=== PATIENT | female | born 1990 | race Caucasian/White ===

== ENCOUNTER 2019-12-01 14:18 | Outpatient (CLI) | payer OTHER, SELFPAY ==
--- NOTE | 2019-12-01 14:26 | DI.US.S_ITS ---
PROCEDURE: US OB TRANSVAGINAL INDICATIONS: CERVICAL LENGTH FOR CONTRACTIONS OUTSIDE/PRIOR DATING DATA: Estimated date of delivery (ORALIA) from an outside prior scan: 01/29/20. TECHNIQUE: Real-time scanning was performed of the fetus, with image documentation. Endovaginal scanning: Was performed for better visualization COMPARISON: None. FINDINGS: A single living intrauterine gestation is present. Presentation: Cephalic. Placenta: No placenta previa is seen. Amniotic fluid index: Not measured heart rate: Not measured Maternal cervical canal: 4.4 cm long. No funneling of the internal cervical os can be seen. IMPRESSION: The cervical length is 4.4 cm. No funneling of the internal cervical os can be seen. Cephalic presentation, without placenta previa. Dictated by: Clinton Song M.D. on 12/01/2019 at 14:14 Approved by: Clinton Song M.D. on 12/01/2019 at 14:16
[2019-12-01 14:31] LABS: Bacteria Urine None Seen; RBC Urine None Seen (0-5/HPF); WBC Urine None Seen (0-5/HPF)
[2019-12-01 14:32] LABS: Appearance Urine UA CLEAR; Bilirubin Urine UA NEGATIVE (NEGATIVE); Color Urine UA YELLOW; Glucose Urine UA NEGATIVE (Negative); Ketones Urine UA NEGATIVE (NEGATIVE); Leukocyte Esterase Urine UA NEGATIVE (NEGATIVE); Nitrite Urine UA NEGATIVE (Negative); Occult Blood Urine UA NEGATIVE (Negative); Protein Urine UA NEGATIVE (Negative); Urobilinogen Urine UA 0.2 E.U./dL (0.2)
[2019-12-01 14:37] LABS: Culture Indicated Urine Cult Not Indicated; Urine Comments Microscopic Normal
--- NOTE | 2019-12-01 15:01 | PM.OBTRLD ---
Visit Information Visit Information Date of evaluation: 12/01/19 Primary OB Provider: Christine Rick On-call OB Provider: Alisia Spicer Reason for Evaluation: Yes pre-term labor Comments/Additional reasons for admission: 29YO @ [id number] here for evaluation of contractions. [place] uncomfortable constant uterine tightening all night that increased to time-able contractions this afternoon. No VB or LOF. 30wk [place] from [facility] to CNM. Vital Signs Vital Signs: BP 120/65, T97.5F Temporal, RR16 PFSH Social History (Updated 12/01/19 @ 15:07 by Christine Rick CNM) marital status: household members: spouse lives independently: Yes caregiver/support person: No occupational status: employed current occupational exposures/hazards: No Previous occupational history: AD Review of Systems Review of Systems ROS: Yes All systems reviewed with the patient and are negative except as otherwise documented Exam Presentation: vertex Objective Imaging US OB transvaginal Cervical Length: My impression: Stable CL- 4.4cm (was 4.5cm @ 22wk anatomy scan US) Radiologist's impression: PROCEDURE: US OB TRANSVAGINAL INDICATIONS: CERVICAL LENGTH FOR CONTRACTIONS OUTSIDE/PRIOR DATING DATA: Estimated date of delivery (ORALIA) from an outside prior scan: 01/29/20. TECHNIQUE: Real-time scanning was performed of the fetus, with image documentation. Endovaginal scanning: Was performed for better visualization COMPARISON: None. FINDINGS: A single living intrauterine gestation is present. Presentation: Cephalic. Placenta: No placenta previa is seen. Amniotic fluid index: Not measured heart rate: Not measured Maternal cervical canal: 4.4 cm long. No funneling of the internal cervical os can be seen. IMPRESSION: The cervical length is 4.4 cm. No funneling of the internal cervical os can be seen. Cephalic presentation, without placenta previa. Dictated by: Clinton Song M.D. on 12/01/2019 at 14:14 Approved by: Clinton Song M.D. on 12/01/2019 at 14:16 Labs Labs: Laboratory Results - last 24 hr 12/01/19 14:20 Urine Color Yellow Urine Appearance Clear Urine pH 7.0 Ur Specific [place] 1.010 Urine Protein Negative Urine Glucose (UA) Negative Urine Ketones Negative Urine Occult Blood Negative Urine Nitrate Negative Urine Bilirubin Negative Urine Urobilinogen 0.2 Ur Leukocyte Esterase Negative Urine RBC None seen Urine WBC None seen Urine Bacteria None seen Ur Culture Indicated? Cult not indicated Micro UA Comment Microscopic normal LOIS/Wet prep-negative for clue cells, yeast buds and trich Evaluation Evaluation Baseline heart rate: 145 Variability: Moderate (11-25) monitor accelerations: Present monitor decelerations: Absent Contraction Frequency (minutes): 5 Uterine Contraction Intensity: Mild Category of Tracing: I Laboratory results: Laboratory Tests 12/01/19 14:20 Urine Color Yellow Urine Appearance Clear Urine pH 7.0 Ur Specific [place] 1.010 Urine Protein Negative Urine Glucose (UA) Negative Urine Ketones Negative Urine Occult Blood Negative Urine Nitrate Negative Urine Bilirubin Negative Urine Urobilinogen 0.2 Ur Leukocyte Esterase Negative Urine RBC None seen Urine WBC None seen Urine Bacteria None seen Ur Culture Indicated? Cult not indicated Micro UA Comment Microscopic normal Comments: fFN collected, but not sent after 4.4cm CL resulted Diagnosis, Plan/Disposition Plan/Disposition Plan: A: contractions with NO concern for labor @ 31wks EGA P: Discharge to home w/ routien precautions. Counseled her that this is her new baseline of discomfort and encouraged her to call if cramping increases. RTC as previously scheduled. OB Disposition: home
== END 2019-12-01 15:35 | disposition home or self-care (01) ==
LOC: LABOR 15:04 → OB 12-02 13:25
PROVIDERS: PCP Physician Assistant; Referring Provider Nurse Practitioner Obstetrics & Gynecology; Visit Provider Nurse Practitioner Obstetrics & Gynecology
DX: O47.03 False labor before 37 completed weeks of gestation, third trimester (principal); Z3A.31 31 weeks gestation of pregnancy
CPT/HCPCS: 59025; 76817; 81001; 87210; G0378; G0379

== ENCOUNTER → 2020-01-06 13:08 | Outpatient (ROUT) | payer OTHER, SELFPAY | PROVIDERS: PCP Physician Assistant; Visit Provider Nurse Practitioner Obstetrics & Gynecology | DX: Z34.90 Encounter for supervision of normal pregnancy, unspecified, unspecified trimester (principal); Z36.85 Encounter for antenatal screening for Streptococcus B; Z3A.36 36 weeks gestation of pregnancy | CPT/HCPCS: 87070; 87077; 87147; 87205 ==

== ENCOUNTER 2020-01-26 21:35 | Outpatient (CLI) | payer OTHER, SELFPAY ==
--- NOTE | 2020-01-27 05:55 | PM.OBTRLD ---
Visit Information Visit Information Date of evaluation: 01/26/20 Primary OB Provider: Christine Rick On-call OB Provider: Petra Steele Reason for Evaluation: Yes rupture of membranes Comments/Additional reasons for admission: 29YO @ [id number]. Has noticed increasing abdominal pain and wet underwear x 2 days, here for evaluation of PROM. +FM. No VB. Vital Signs Vital Signs: BP 131/72, HR 76bpm, RR 16/min, T 99.1F Temporal PFSH Social History marital status: household members: spouse lives independently: Yes caregiver/support person: No occupational status: employed current occupational exposures/hazards: No Previous occupational history: AD Review of Systems Review of Systems ROS: Yes All systems reviewed with the patient and are negative except as otherwise documented Evaluation Evaluation Baseline heart rate: 115 Variability: Moderate (11-25) monitor accelerations: Present monitor decelerations: Absent Contraction Frequency (minutes): 5 Uterine Contraction Intensity: Mild Category of Tracing: I Non-invasive Membranes Rupture Test: negative Comments: CE deferred Diagnosis, Plan/Disposition Final Diagnosis (1) Amniotic cavity/membrane problem suspected but not found: Status: Acute Plan/Disposition Plan: Discharge to home with routine precautions. Follow-up as previously scheduled. OB Disposition: home
== END 2020-01-26 22:14 | disposition home or self-care (01) ==
LOC: LABOR 21:37 → OB 01-27 11:45
PROVIDERS: PCP Physician Assistant; Referring Provider Nurse Practitioner Obstetrics & Gynecology; Visit Provider Nurse Practitioner Obstetrics & Gynecology
DX: O26.893 Other specified pregnancy related conditions, third trimester (principal); N89.8 Other specified noninflammatory disorders of vagina; Z3A.39 39 weeks gestation of pregnancy
CPT/HCPCS: 59025; 84112; G0378; G0379

== ENCOUNTER 2020-01-27 06:16 | Observation (INO) | payer OTHER, SELFPAY ==
--- NOTE | 2020-01-27 06:34 | PM.OBTRLD ---
Visit Information Visit Information Date of evaluation: 01/27/20 Primary OB Provider: Christine Rick On-call OB Provider: Petra Steele Reason for Evaluation: Yes rule out labor Comments/Additional reasons for admission: 29YO @ [id number] here for evaluation of labor. Has been having regular contractions since 1am, strong since 4am. Breathing through contractions every 3 minutes. +FM. No VB. No further LOF since negative Amnisure last night. Vital Signs Vital Signs: BP 132/74, HR 99bpm, T98.8F temporal PFSH Social History marital status: household members: spouse lives independently: Yes caregiver/support person: No occupational status: employed current occupational exposures/hazards: No Previous occupational history: AD Review of Systems Review of Systems ROS: Yes All systems reviewed with the patient and are negative except as otherwise documented Evaluation Evaluation Baseline heart rate: 120 Variability: Moderate (11-25) monitor accelerations: Present monitor decelerations: Absent Contraction Frequency (minutes): 3 Uterine Contraction Intensity: Moderate Category of Tracing: I Cervical dilation (cm): 2 Cervical effacement (%): 90 station: -2 Diagnosis, Plan/Disposition Plan/Disposition Plan: A: Early Labor, GBS pos P: Recommend 2 hours walk and return, sooner if needed. SARS Cov2- swabs collected and sent on patient and spouse. Encouraged light breakfast and ambulation. Will reassess upon return to the hospital, likely admission at that time. OB Disposition: home
[2020-01-27 08:12] LABS: COVID19 -Nasal RAPID Negative (Negative)
== END 2020-01-27 07:15 | disposition home or self-care (01) ==
PROVIDERS: Admitting Provider Nurse Practitioner Obstetrics & Gynecology; PCP Physician Assistant; Referring Provider Physician Assistant; Visit Provider Nurse Practitioner Obstetrics & Gynecology
DX: Z34.03 Encounter for supervision of normal first pregnancy, third trimester (principal); Z3A.39 39 weeks gestation of pregnancy
CPT/HCPCS: 87635; G0378; G0379

== ENCOUNTER 2020-01-27 10:07 | Inpatient (IN) | payer OTHER, SELFPAY ==
--- NOTE | 2020-01-27 11:12 | PM.OBHP.1 ---
OB HPI Date/Time Date of admission: 01/27/20 Date Patient Seen: 01/27/20 Time Patient Seen: 11:00 History of Present Condition Chief complaint: OBSERVATION OF LABOR : 1 Para: 0 Estimated Date of Delivery: 01/29/20 Estimated Gestational Age (weeks): 39.5 Narrative: Neri Lincoln is a 29 year old nulliparous female @ [id number] by sure LMP and early US who presents for evaluation of labor. Has been miracle regularly since 0100 with steady progression of frequency and intensity of contractions. Now breathing through and moaning with contractions. Lots of FM and bloody show. No LOF. CE at 0630 @ 2/90/-2. Declines CE upon admission. [place]/ transfer to [facility] @ 30 wks. GBS positive. Desires low intervention . present andd supportive. History of Present care: good care Dating criteria: LMP confirmed by 1st trimester US Ultrasounds: normal 1st trimester US and normal mid trimester US Obstetrical complications: none Medical complications: none Preadmission Labs Blood type: O (+) positive -: Antibody screen: negative, GBS status: positive, HBsAG: negative, HIV: negative and RPR/VDLR: negative -: Chlamydia screen: not detected and Gonorrhea screen: not detected -: Rubella: immune and Varicella: immune HCT: 39.1 HCAB: negative PAP: Normal 1 hr GTT: 108 Narrative: 01/27/20: SARS Cov2-negative Evaluation Evaluation Baseline heart rate: 125 Variability: Moderate (11-25) monitor accelerations: Present monitor decelerations: Absent Contraction Frequency (minutes): 2 Uterine Contraction Intensity: Strong/Firm Cervical effacement (%): 90 station: -2 Comments: Patient presumed to be 3-4cm [facility] Social History marital status: household members: spouse lives independently: Yes caregiver/support person: No occupational status: employed current occupational exposures/hazards: No Previous occupational history: AD Meds Home Medications and Allergies Home Medications Medication Instructions Recorded Confirmed Type 01/27/20 History Allergies Allergy/AdvReac Type Severity Reaction Status Date / Time No Known Drug Allergies Allergy Unverified 01/27/20 11:26 Review of Systems Review of Systems ROS: Yes All systems reviewed with the patient and are negative except as otherwise documented Exam Vital Signs (past 8 hours): BP 120/67, HR 1010bpm, T36.2C Temporal OB/External & Speculum: deferred Presentation: vertex Amniotic Fluid: no fluid Assessment and Plan Assessment and Plan Assessment and Plan narrative: Apparently active labor. Admit, routine orders w/ CBC, T&S and PCN ofr GBS porphylaxis. Continuous labor support. Encourage frequent position changes. May swithc to IA, per protocol. OB back-up, , notified of patient admission status and POC. Reasses in 2-4 hours or rl, PRN. Time Spent with Patient Total time spent with greater than 50% in coordination of care (as documented) at patient's floor/unit and/or counseling patient:: 15-24 minutes
[2020-01-27 11:45] LABS: Add Manual Diff / Slide Review NO; Basophils Absolute Auto 100 /uL (0-100); Basophils Percent Auto 0.4 % (0-2); Eosinophils Absolute Auto 0 /uL (0-450); Hematocrit 37.5 % (36-46); Hemoglobin 13.1 g/dL (12.0-16.0); Lymphocytes Absolute Auto 1600 /uL (1100-4500); Lymphocytes Percent Auto 9.5 % (25-40); Mean Corpuscular HGB Conc 34.9 % (30-36); Mean Corpuscular Hemoglobin 29.4 PG (26-34); Mean Corpuscular Volume 84.3 fL (80-100); Monocytes Absolute Auto 900 /uL (0-900); Monocytes Percent Auto 5.7 % (3-14); Neutrophils Absolute Auto 14200 /uL (1500-7000); Neutrophils Percent Auto 84.4 % (50-75); Platelet Count 224 X10^3/uL (150-400); Red Blood Cell Count 4.45 X10^6/uL (4.0-5.2); Red Cell Distribution Width 12.6 % (11.6-14.8); White Blood Cell Count 16.8 X10^3/uL (4.5-11.0)
[2020-01-27] MEDS: PENICILLIN G POTASSIUM 5,000,000 UNIT in DEXTROSE 5% IN WATER 250 ML IV (11:55)
[2020-01-27 12:17] VITALS: BP 120/67
--- NOTE | 2020-01-27 13:29 | PM.OBPNLAB ---
Date/Time Date Patient Seen: 01/27/20 Time Patient Seen: 12:50 Pain Control Pain control: tolerating well Comments: breathing through and moaning with contractions. Has been laboring well in the tub, planning to move to the shower next. No LOF. Pelvic Exam Dilation (cm): 5 Effacement (%): 100 station: -2 Amniotic membrane status: Bulging Contractions Date/Time contractions began: <del>1000</del> Contractions on admission: regular Monitor mode: Palpation Pitocin rate (mU/min): 0 Contraction frequency (min): 2 Contraction duration (min): 1 Contraction pattern: Regular Contraction intensity: Strong/Firm Status status: Category l Heart Rate Baseline: 130 Comments: FHR reassuring by intermittent auscultation, see RN OBIX documentation, no decreases noted. Assessment and Plan Assessment: active labor Plan: continuous present management Comments: Continuous labor support. Reassess in 4 hours or sooner, PRN.
--- NOTE | 2020-01-27 15:03 | PM.OBPNLAB ---
Date/Time Date Patient Seen: 01/27/20 Time Patient Seen: 15:00 Pain Control Pain control: epidural Comments: SROM 1335, clear fluid, contractions intensified. Patient began to spontaneously push at the peak of contractions, was checked and told she is 6cm, requested epidural. Epidural procedure starting now. Pelvic Exam Dilation (cm): 6 Effacement (%): 100 station: -2 Amniotic membrane status: Leaking Contractions Date/Time contractions began: 1000 Contractions on admission: regular Monitor mode: Palpation Pitocin rate (mU/min): 0 Contraction frequency (min): 3 Contraction duration (min): 1 Contraction pattern: Regular Contraction intensity: Strong/Firm Status status: Category l Heart Rate Baseline: 136 Comments: FHR remains reassuring by IA. Assessment and Plan Assessment: active labor Plan: continuous present management Comments: Repeat exam to assess position once patient is comfortable. Encourage frequent position changes. Continuous EFM. Continue GBS prophylaxis. Will consider pitocin augmentation if progress is minimal at next exam.
[2020-01-27] MEDS: FENT 2MCG/ML BUPIV 0.125% EPI 200 MCG/100 ML PLAST..BAG 10 MCG EPIDURAL ×2 (15:20→20:45)
[2020-01-27] MEDS: PENICILLIN G POTASSIUM 3,000,000 UNIT/50 ML FROZ.PIGGY 100 UNIT IV ×2 (16:01→19:46)
[2020-01-27] MEDS: LACTATED RINGERS 1,000 ML 100 ML IV ×3 (16:04→22:47)
--- NOTE | 2020-01-27 17:57 | PM.OBPNLAB ---
Date/Time Date Patient Seen: 01/27/20 Time Patient Seen: 17:04 Pain Control Pain control: epidural Comments: Called by RN for recurrent variables despite position changes. VO for cervical exam and position change to hands and knees. Patient in this position when I arrived. Patient comfortable and able to move well and tolerate this position. Pelvic Exam Dilation (cm): 7 Effacement (%): 100 station: -1 Amniotic membrane status: Leaking Contractions Monitor mode: Palpation Pitocin rate (mU/min): 0 Contraction frequency (min): 3 Contraction duration (min): 1 Contraction pattern: Regular Contraction intensity: Strong/Firm Status status: Category ll Heart Rate Baseline: 140 Monitor Accelerations: Present Monitor Decelerations: Variable Monitor Variability: Moderate Comments: Recurrent variables w/ holli to 80-120 Assessment and Plan Assessment: active labor Plan: continuous present management Comments: CNM at bedside. Will consult OB if no improvement or if decreasing variability.
[2020-01-27] MEDS: ONDANSETRON 4 MG/2 ML INJ IV (21:15)
--- NOTE | 2020-01-27 21:38 | P.PNOB_ITS ---
Date/Time Date Patient Seen: 01/27/20 Time Patient Seen: 09:30 Pain Control Pain control: epidural Pelvic Exam Dilation (cm): 10 Effacement (%): 100 station: 0 Amniotic membrane status: Leaking Contractions Contractions on admission: regular Monitor mode: Palpation Pitocin rate (mU/min): 0 Contraction frequency (min): 3 Contraction pattern: Regular Contraction intensity: Strong/Firm Status status: Category ll Heart Rate Baseline: 145 Monitor Accelerations: Present Monitor Decelerations: Variable Monitor Variability: Moderate Assessment and Plan Assessment: active labor Plan: continuous present management Comments: Patient's nausea has improved w/ ondansetron. She was able to push pas t anterior lip after several attempts, pushing because of patient urge w/ rectal pressure, now resolved after PCEA x2. Pt now C/C/0 w/ minimal descent and persistent LOP position. FHR continues to have occasional variables w/ holli to 90, overall improved and variability remains moderate. Patient has a COREAS that is distracting her. Tylenol given and recommend 1 hour to labor down. Reassess in 1 hour or sooner, PRN.
[2020-01-27] MEDS: ACETAMINOPHEN 325 MG TABLET 975 MG PO (21:59)
--- NOTE | 2020-01-27 23:10 | PM.OBPNLAB ---
Date/Time Date Patient Seen: 01/27/20 Time Patient Seen: 11:00 Pain Control Pain control: tolerating well Pelvic Exam Dilation (cm): 9 Effacement (%): 100 station: 0 Amniotic membrane status: Leaking Contractions Date/Time contractions began: 0500 Contractions on admission: regular Monitor mode: Palpation Pitocin rate (mU/min): 0 Contraction frequency (min): 3 Contraction duration (min): 1 Contraction pattern: Regular Contraction intensity: Strong/Firm Status status: Category ll Heart Rate Baseline: 125 Monitor Accelerations: Present Monitor Decelerations: Variable Monitor Variability: Moderate Assessment and Plan Assessment: active labor Plan: Comments: Anterior lip has returned after multiple position changes and laboring down, fetus seems unable to move past 0 station. Discussed arrest of descent w/ patient and offered IUPC/pitocin vs primary consultation. Pt elects primary . , and supervisor bit and shank department notified.
--- NOTE | 2020-01-27 23:40 | PM.OBPNLAB ---
Date/Time Date Patient Seen: 01/27/20 Time Patient Seen: 23:40 Pain Control Comments: More uncomfortable, epidural wearing off. Pelvic Exam Dilation (cm): 9 Effacement (%): 100 station: 0 Amniotic membrane status: Leaking Contractions Monitor mode: Palpation Contraction frequency (min): 3 Contraction pattern: Regular Contraction intensity: Strong/Firm Status status: Category ll Heart Rate Baseline: 125 Monitor Accelerations: Present Monitor Decelerations: Variable (recurrent) Monitor Variability: Moderate Assessment and Plan Plan: Comments: 29 year old at 39 weeks and 5 days gestation under the care of Christine Capone CNM. Dr. Carney and I were consulted for primary section for arrest of labor with category II hear tracing. Suspect malpresentation and nuchal cord. Risks reviewed with patient and her including bleeding, infection, injury to surrounding organs (specifically bowel or bladder). Consent signed and placed in chart. Ancef 2 g prior to surgery.
--- NOTE | 2020-01-27 23:46 | PM.PREOP ---
Pre-operative Note COVID-19 COVID-19 status: Negative Result date/Date tested (Pos, Neg/Pending): 01/27/20 Interval Note History & Physical reviewed/Exam performed by Physician: Yes Changes to H&P: No
--- NOTE | 2020-01-27 23:47 | SUR.OPER ---
Supine on Padded OR bed, head on pillow, safety belt at thigh, arms secured on padded arm boards at <90 degrees abduction. Bump under right buttock. Legs uncrossed with pillow under knees, gel pad to heels, tape over blanket to lower legs.
--- NOTE | 2020-01-28 00:29 | SUR.OPER ---
Viable male delivered at 00:29. Cord blood x2 and placenta sent with L&D RN.
--- NOTE | 2020-01-28 00:37 | SUR.OPER ---
Umbilical cord for gases sent with RT.
[2020-01-28] MEDS: LACTATED RINGERS 1,000 ML 100 ML IV (00:56)
[2020-01-28 01:22] VITALS: BP 113/62; PULSE 109; RESP 21; O2SAT 98
[2020-01-28 01:25] VITALS: BP 127/60; PULSE 105; RESP 21; TEMP 38.1; O2SAT 98
--- NOTE | 2020-01-28 01:26 | PM.OP.1 ---
Operative Date/Time/Diagnoses Date of procedure: 01/28/20 Time of procedure: 00:15 Pre-op diagnosis: Arrest of second stage of labor 39 weeks of Post-op diagnosis: same Procedure & Clinicians Procedure: Primary low transverse section Same procedure as scheduled: Yes Indications: Arrest of second stage of labor 39 weeks of Surgeon: Laura Lancaster Product Inspection Supervisor: Rolando Carney Anesthesia Type: General (Converted to general when repairing the peritoneum) and Epidural Operative Notes Findings: Male Normal uterus, tubes and ovaries Closure Type: primary Specimen(s): other (Cord segment for gases) Estimated Blood Loss (mL): 500 Procedure in detail: The patient was taken to the operating room. Epidural was bolused prior to transfer to the OR with good pain control per patient. She was then placed in the dorsal supine position with a leftward tilt. She was prepped and draped in the usual sterile fashion. A timeout was performed. After epidural analgesia was found to be adequate, a Pfannenstiel skin incision was made 2 fingerbreadths above the pubic symphysis and carried through to the underlying layer fascia. The fascia was nicked in the midline and the incision extended bilaterally with Suero scissors. The superior aspect of the fascial incision was grasped with a Lisette clamps, elevated, and the underlying rectus muscles dissected off sharply and bluntly. Attention was then turned to the inferior aspect of this incision which in a similar fashion was grasped with a Lisette clamps, elevated, and the underlying rectus muscles dissected off sharply and bluntly. The rectus muscles were in the midline. The peritoneum was identified, grasped between 2 hemostats, and entered sharply with the Metzenbaum scissors. This incision was extended superiorly and inferiorly with good visualization of the bladder. The bladder blade was inserted. The vesicouterine peritoneum was identified, grasped with the pickup, and entered sharply with the Metzenbaum scissors. This incision was extended bilaterally and the bladder flap was created digitally. The bladder blade was reinserted. The lower uterine segment was incised in a transverse fashion with the scalpel. Upon entering the amniotic sac there was a small amount of thick meconium stained amniotic fluid. was direct occiput posterior. The infant's head was delivered with some difficulty after vaginal pressure applied by CNM. The remainder of the body delivered. The cord was wrapped over the left shoulder and reduced at delivery. The cord was double clamped and cut and a segment sent for cord gases. The infant was handed off to waiting RN and RT and noted to have poor respiratory effort. The placenta was delivered manually. The uterus was cleared of all clots and debris. The uterine incision was repaired with #1 chromic in a running interlocking fashion and a second layer the same suture was used for an imbricating layer. Hemostasis was achieved. The tubes and ovaries were examined and were found to be normal. The gutters were cleared of all clots and debris. The parietal peritoneum was closed using 2-0 Vicryl in a running fashion. The fascia was reapproximated using 0 Vicryl in a running fashion. Subcutaneous layer was copiously irrigated with warm normal saline. 3 simple interrupted sutures of 3-0 Vicryl were placed to reapproximate the subcutaneous layer. The skin was closed with 4-0 undyed Vicryl in a subcuticular fashion. Steri-Strips were placed. An Aquacel dressing was placed. The uterus was expressed of a small amount of old blood. Sponge, lap, and instrument counts were correct. The patient tolerated the procedure well, and was taken to PACU in stable condition. Complications: other (Infant received PPV and was transferred to the nursery. Apgars were 2, 6 and 7 at 1, 5 and 10 minutes. ) Post-operative Condition: stable Disposition: PACU Plan for aftercare: Routine postop care.
[2020-01-28] MEDS: fentaNYL 100 MCG/2 ML INJ IV (01:30)
[2020-01-28] MEDS: HYDROMORPHONE 2 MG INJ IV (01:30)
[2020-01-28 01:31] VITALS: BP 121/64; PULSE 115; RESP 20; O2SAT 98
[2020-01-28 01:45] VITALS: BP 113/67; PULSE 109; RESP 20; TEMP 37.2; O2SAT 98
[2020-01-28 01:50] VITALS: BP 114/72; PULSE 108; RESP 17; O2SAT 97
[2020-01-28] MEDS: KETOROLAC 30 MG/ML VIAL IV ×3 (02:18→14:00)
[2020-01-28] MEDS: OXYCODONE IR 5 MG TABLET PO ×4 (02:22→16:58)
[2020-01-28] MEDS: PRENATAL VIT,CALC/IRON/FOLIC 1 TABLET 1 TAB PO (08:25)
[2020-01-28] MEDS: DOCUSATE 250 MG CAPSULE PO (08:25)
--- NOTE | 2020-01-28 10:23 | PM.OBPN.1 ---
Subjective - OB Subjective Patient comments: pain well controlled, incisional pain and tolerating diet baby status: NICU ([facility]) [employer] feeding status: pumping and storing Narrative: This patient is a 29yo P1 POD#0 s/p pCS, recovering appropriately given her recent return from surgery and her general anesthesia. She has tolerated PO, has good pain control, and has no other complaints. Date Patient Seen: 01/28/20 Time Patient Seen: 10:29 Exam Vital Signs (past 8 hours): 109/61, HR 96 Oxygen Delivery Method Room Air Const General: cooperative, healthy appearing and comfortable Resp Effort & Inspection: normal respiratory effort Auscultation: clear to auscultation bilaterally Cardio Rate: regular rate Rhythm: regular rhythm GI Palpation: soft and tender Other: fundus firm, well below u, incision c/d/i Skin General: no rashes or lesions noted Objective Labs Result Diagrams: 01/27/20 11:20 Labs: Laboratory Results - last 24 hr 01/27/20 01/27/20 11:20 11:20 WBC 16.8 H RBC 4.45 Hgb 13.1 Hct 37.5 MCV 84.3 MCH 29.4 MCHC 34.9 RDW 12.6 Plt Count 224 Neut % (Auto) 84.4 H Lymph % (Auto) 9.5 L [place] % (Auto) 5.7 Eos % (Auto) 0.0 L Baso % (Auto) 0.4 Neut # (Auto) 82875 H Lymph # (Auto) 1600 [place] # (Auto) 900 Eos # (Auto) 0 Baso # (Auto) 100 Blood Type O Positive Antibody Screen Negative Assessment & Plan Plan day: 0 plan OB: routine postop care Comments: Ambulation and voiding trial today. Discussed discharge this PM vs. tomorrow AM for NICU access, patient ok with tomorrow AM. - Ambulation encouraged - VT this PM - Routine postop care Time Spent With Patient Time: Total time spent is greater than 50% in coordination of care (as documented) at patient's floor/unit and/or counseling patient: Time with patient: less than 15 minutes
[2020-01-28] MEDS: ACETAMINOPHEN 325 MG TABLET 650 MG PO (12:49)
--- NOTE | 2020-01-28 15:52 | PATH_ITS ---
[facility] Accession Number: [id number] . 01 Material submitted: . placenta - PLACENTA . 02 Diagnosis: Jaramillo Placenta (423 grams), Delivery: membranes with acute chorioamnionitis. Three vessel umbilical cord with no evidence of funisitis. Villus maturity appropriate for term gestation. [facility] 02/02/2020 1545 Local . 02 Electronically signed: . Yang Ozuna MD, PhD, Pathologist NPI- [id number] . 01 Gross description: . Specimen A is received in formalin, labeled with patient identification and placenta. It consists of a 423 gram, jaramillo, discoid placenta that measures 16.1 x 14.5 x 2.2 cm. The paramarginally inserted, edematous, increased coiling (two coils per 5 cm), trivascular umbilical cord measures 14.8 cm in length and 1.2 cm in diameter. The marginally inserted membranes are blue to pink-marcelo, smooth, and semi-opaque. The surface is blue-zuniga, smooth, and glistening with radiating vasculature. No subchorionic fibrin thrombosis is present. The complete and intact marginal surface is zuniga-brown with well-formed, well-demarcated cotyledons. Serially sectioning the specimen reveals a 0.8 x 0.6 x 0.5 cm, yellow-marcelo induration, involved on less than 5% of the total placental volume. The remaining parenchyma is otherwise red-brown and spongy. In Store Marketer sections are submitted in three cassettes. . Summary of sections: A1: membrane roll and area representative cross-sections of umbilical cord, three pieces. A2: In Store Marketer induration with full sections of placental parenchyma, one piece. A3: In Store Marketer full thickness of uninvolved placental parenchyma, one piece. ([id number]) /MRV 02/01/2020 1220 Local . 02 Pathologist provided ICD-10: P03.9 . 02 CPT . 682145 Performed at: 01 [facility] [address] [id number] MD Arsalan Gonzalez MD Phone: [phone] Performed at: [id number] [place], [place] [id number] MD Kenzie Nolan MD Phone: [phone]
--- NOTE | 2020-01-28 16:11 | PM.OBDS.1 ---
Discharge Providers Provider Date of admission: 01/27/20 10:07 Discharge Date: 01/28/20 Primary care physician: Alvin Neal PA-C Consults: 01/27/20 11:14 Consult to Anesthesiology Urgent Comment: Consulting Provider: Anesthesiologist Reason for consultation: if requested Has provider been notified: No 01/28/20 01:51 Consult to Assistant Pastry Chef Routine Comment: Discharge provider: Windy Friend MD Summary Hospital Course Date Patient Seen: 01/28/20 Time Patient Seen: 16:12 Procedures: primary section Hospital Course: This patient is a 29yo now P0 who presented at 39 weeks gestation in early labor. She progressed to 9.5cm dilated, and was taken to the OR for labor arrest in the setting of a cat 2 EFM. The patient's section was otherwise uncomplicated, though baby required PPV and CPR and was transferred to a NICU. The patient's postoperative recovery was uncomplicated, and she was discharged on POD#1 after meeting all postoperative goals and with precautions and follow up. Peripartum Data Delivery Method: Section complications: none 1: Disposition of : NICU Discharge Diagnosis (1) delivery delivered: Status: Acute Status at Discharge Cognitive/behavioral status at discharge: oriented Functional status at discharge: independent ambulation Overall status at discharge: patient is progressing back to baseline Time Spent with Patient Time attestation: Total time spent providing and/or coordinating discharge services: Time spent: Less than 30 minutes Objective Labs Result Diagrams: 01/27/20 11:20 Exam Vital Signs (past 8 hours): Oxygen Delivery Method Room Air Discharge Plan Discharge Plan Patient Disposition: Home Discharge orders & Medications Prescriptions: New oxycodone 5 mg tablet 5 mg PO Q8H PRN (Reason: pain) Qty: 20 RF: 0 docusate sodium [Colace] 100 mg capsule 100 mg PO BID Qty: 60 RF: 0 Discontinued 1 tablet 1 RF: 0 Follow up/Referrals: Christine Rick CNM [Advanced Mincemeat Maker] - 1 Month ( visit) Laura Lancaster DO [Physician] - 1 Week (Aquacell removal) Diet/Activity/Treatments Activity: Nothing in the vagina for 6 weeks. Avoid heavy lifting for 6 weeks. If you have increasing bleeding, fevers, chills, pain, headaches, nausea, vomiting, or any other symptoms, call or come to the ED. Skin/Wound/Dressing Care Report to your healthcare provider any signs of infection, such as:: chills, fever, night sweats, increased pain, unusual drainage and unusual redness Dressing: To be removed in the office in 1 week. Visit Report/Discharge Packet Instructions: DI for Stand Alone Forms: Discharge: Care Discharge Data Primary Care Provider: Alvin Neal
[2020-01-28 16:34] VITALS: BP 124/76; PULSE 95; RESP 17; TEMP 36.3
== END 2020-01-28 18:25 | disposition home or self-care (01) | DRG 788 ==
PROVIDERS: Family Medicine; Admitting Provider Nurse Practitioner Obstetrics & Gynecology; PCP Physician Assistant; Referring Provider Nurse Practitioner Obstetrics & Gynecology; Visit Provider Nurse Practitioner Obstetrics & Gynecology
PROC: (CPT 59514; principal; 2020-01-27 23:45)
DX: O99.824 Streptococcus B carrier state complicating childbirth (principal); Z3A.39 39 weeks gestation of pregnancy; Z37.0 Single live birth; O76 Abnormality in fetal heart rate and rhythm complicating labor and delivery; O63.1 Prolonged second stage (of labor); O77.0 Labor and delivery complicated by meconium in amniotic fluid
CPT/HCPCS: 01967; 01968; 59050; 59514; 85025; 86850; 86900; 86901; 87635; G0378; G0379; J1170; J1885; J2274; J2405; J2540; J2704; J3010

== ENCOUNTER 2020-01-30 16:03 | Emergency (ER) | payer OTHER, SELFPAY ==
[2020-01-30 16:19] VITALS: BP 125/86; PULSE 76; RESP 15; TEMP 36.6; O2SAT 100; BMI 35.4
--- NOTE | 2020-01-30 16:45 | DI.CT.S_ITS ---
PROCEDURE: CT ABDOMEN PELVIS W CON INDICATIONS: difusse abd wall cellulitis , severe pain s/p c-sect TECHNIQUE: After the administration of oral and intravenous contrast, 5 mm thick sections acquired from the diaphragms to the symphysis. 5 mm thick coronal and sagittal reformats were performed. For radiation dose reduction, the following was used: automated exposure control, adjustment of mA and/or kV according to patient size. COMPARISON: None. FINDINGS: Image quality: Diagnostic. ABDOMEN: Lung bases: There is a small left-sided pleural effusion with associated discoid atelectasis. Heart size is normal. Solid organs: The liver, spleen, adrenals, and pancreas appear to be within normal limits. Both kidneys are normal in size. There is mild bilateral hydronephrosis (right greater than left). No definite renal calculi are appreciated. The proximal ureters are slightly prominent. The distal ureters are not identifiable related to the enlarged uterus and overlying bowel loops. Peritoneum and bowel: The stomach is unremarkable. The small bowel loops are nondilated. Large amount of residual stool is identified within the colon. The appendix is not definitely seen. No significant free fluid is evident. No loculated fluid collections are identified. There may be a small amount of pneumoperitoneum related to the patient's recent surgery. Nodes and vessels: No retroperitoneal or mesenteric adenopathy. Aorta and inferior vena cava are normal in caliber. Bones: No acute fracture or suspicious osseous lesion is identified. PELVIS: Genitourinary: The uterus is enlarged and markedly heterogeneous. A small amount of air is contained within the endometrial cavity, likely related to the patient's recent section. The ovaries are not identifiable. The urinary bladder is within normal limits. No bladder wall thickening is evident. Miscellaneous: No inguinal hernias or adenopathy. No significant free fluid is seen within the pelvis. There is no loculated fluid collection. There is edema evident within the anterior abdominal wall muscles, particularly involving the rectus abdominis muscles with areas of intramuscular air are evident. Additional areas of overlying subcutaneous edema is identified that is more pronounced within the periumbilical region. Bones: No suspicious bony lesions. No acute pelvic fractures are identified. IMPRESSION: 1. Expected postoperative changes of the lower anterior abdominal wall and pelvis are compatible with the patient's history of a recent section. 2. Edema and air within the rectus abdominis muscles and adjacent subcutaneous tissues may be within normal limits given the patient's recent surgery. However, superimposed cellulitis cannot be excluded. (Air within the endometrium also is likely related to recent surgery. However, endometritis cannot be excluded.) 3. No abscess or drainable fluid collection. 4. Possible constipation. No bowel obstruction. 5. Small left-sided pleural effusion and associated atelectasis. 6. Mild hydronephrosis of both kidneys probably is related. Dictated by: Stefan Coles M.D. on 01/30/2020 at 16:50 Approved by: Stefan Coles M.D. on 01/30/2020 at 16:55
[2020-01-30] MEDS: SODIUM CHLORIDE 0.9% 1,000 ML 1000 ML IV (17:15)
[2020-01-30] MEDS: VANCOMYCIN 1,000 MG/200 ML PIGGYBACK 200 MG IV (17:16)
[2020-01-30] MEDS: PIPERACILLIN-TAZO 4.5 GM/100 ML FROZ.PIGGY IV (17:16)
[2020-01-30 17:30] LABS: Add Manual Diff / Slide Review NO; Basophils Absolute Auto 100 /uL (0-100); Basophils Percent Auto 0.6 % (0-2); Eosinophils Absolute Auto 200 /uL (0-450); Eosinophils Percent Auto 2.6 % (2-4); Hematocrit 27.9 % (36-46); Hemoglobin 9.9 g/dL (12.0-16.0); Lymphocytes Absolute Auto 1900 /uL (1100-4500); Lymphocytes Percent Auto 19.6 % (25-40); Mean Corpuscular HGB Conc 35.4 % (30-36); Mean Corpuscular Hemoglobin 29.8 PG (26-34); Mean Corpuscular Volume 84.3 fL (80-100); Monocytes Absolute Auto 500 /uL (0-900); Neutrophils Absolute Auto 7000 /uL (1500-7000); Neutrophils Percent Auto 72.2 % (50-75); Platelet Count 217 X10^3/uL (150-400); Red Blood Cell Count 3.32 X10^6/uL (4.0-5.2); Red Cell Distribution Width 12.7 % (11.6-14.8); White Blood Cell Count 9.7 X10^3/uL (4.5-11.0)
[2020-01-30 17:38] LABS: Alanine Aminotransferase 34 IU/L (<35); Albumin 3.3 g/dL (3.5-5.0); Albumin Globulin Ratio 1.1 (1.0-2.8); Alkaline Phosphatase 128 U/L (38-126); Aspartate Aminotransferase 50 IU/L (14-36); BUN Creatinine Ratio 18.2 (6-22); Bilirubin Total 0.3 mg/dL (0.2-1.3); Blood Urea Nitrogen 12 mg/dL (7-17); Calcium 8.9 mg/dL (8.4-10.2); Carbon Dioxide 28 mmol/L (22-32); Chloride 104 mmol/L (98-107); Estimated Glomerular Filt Rate > 60.0 mL/min (>60); Glucose 77 mg/dL (70-100); HEMOLYSIS < 15 (0-50); Lactate (Lactic Acid) 0.8 mmol/L (0.7-2.1); Potassium 3.8 mmol/L (3.4-5.1); Sodium 137 mmol/L (137-145); Total Protein 6.3 g/dL (6.3-8.2)
--- NOTE | 2020-01-30 18:06 | ED_ITS ---
HPI - Recheck/Abnormal Lab/Rx General Chief Complaint: Recheck/Abnormal Lab/Rx Stated Complaint: recent C section, thinks has infection now Time Seen by Provider: 01/30/20 16:29 Source: patient and family Mode of arrival: Wheelchair Limitations: no limitations History of Present Illness HPI narrative: CC: Abdominal Pain with infected incision HPI: The patient is a 29-year-old female who was until she delivered 2 days ago with a here at [facility]. Her is in the NICU. She states that she had a temperature to 100.2 yesterday with a temperature breaking. She had chills and sweats associated with it but no troubles urinating. She has complained of lower abdominal pain with her entire abdomen but becoming red swollen and tender. She is taking oxycodone and ibuprofen for the pain at home. She has been nauseated but has had no vomiting. She has had no chest pain cough or shortness of breath. She has had increased lower back pain. She has had increased swelling of her legs. She states that the pain is 6 to 7/10 in intensity. She does not smoke cigarettes or drink alcohol or use marijuana. For pain and discomfort she has taken ibuprofen and oxycodone at home. She denies being a diabetic having high blood pressure or asthma. Related Data Previous Rx's Medication Instructions Recorded docusate sodium [Colace] 100 mg PO BID #60 cap 01/28/20 oxycodone 5 mg PO Q8H PRN #20 tab 01/28/20 oxycodone 5 mg PO Q8H PRN #20 tab 01/28/20 cephalexin [Keflex] 500 mg PO QID #28 cap 01/30/20 Allergies Allergy/AdvReac Type Severity Reaction Status Date / Time No Known Drug Allergies Allergy Unverified 01/27/20 11:26 Review of Systems Review of Systems Narrative: Her review of systems were all negative except for those mentioned in the history of present illness Patient History Surgical History History of bilateral breast reduction surgery (Acute) Social History marital status: household members: spouse lives independently: Yes caregiver/support person: No occupational status: employed current occupational exposures/hazards: No Previous occupational history: AD Smoking Status: Never smoker Smoking Status: Never smoker alcohol intake frequency: holidays/special occasions only Substance Use Type: does not use Exam Narrative Exam Narrative: PHYSICAL EXAM: CONSTITUTIONAL: Awake, Alert, Oriented, Coherent, Cooperative in NAD. Does not appear toxic or ill. HEAD: AT/NC EENT: PERRL, FROM of eyes, no discharge, no nystagmus NOSE:No epistaxis or nasal drainage MOUTH:Oral mucosa is moist and pink, NECK: Supple, no obvious JVD, Trachea is midline without stridor, no palpable LN. SPINE: Palpationof the cervical, Thoracic, Lumbar or Sacral spine reveals no gross deformity or tenderness. No CVA tenderness. THORAX: No deformity, retractions, chest wall tenderness. LUNGS: Clear, symmetrical breath sounds without respiratory distress. HEART: Normal heart tones, regular rhythm and rate without murmur. ABDOMEN: The patient has a horizontal transverse scar across her lower pelvis. Her entire abdominal wall infra umbilical is erythematous, hot and tender as though she has a diffuse lower abdominal cellulitis. The patient is also exquisitely tender to palpation suprapubically and right lower quadrant with guarding. EXTREMITIES: No edema, deformity, tenderness or cyanosis. SKIN: No rash, NEURO: Awake, alert, oriented, conversive, cranial nerves II-XII are symmetrical , moves all 4 extremities and is ambulatory. Initial Vital Signs Initial Vital Signs: Vital Signs Temperature 97.8 F 01/30/20 16:19 Pulse Rate 76 01/30/20 16:19 Respiratory Rate 15 01/30/20 16:19 Blood Pressure 125/86 01/30/20 16:19 Pulse Oximetry 100 01/30/20 16:19 Course Course Course Narrative: 1814: Postoperative CT of her abdomen with IV contrast revealed: 1. The expected postoperative changes of the lower anterior abdominal wall and pelvis are compatible with the patient's history of recent section. 2. Edema and air within the rectus abdominis muscle and adjacent subcutaneous tissues may be within normal limits given the patient's recent surgery. However superimposed cellulitis cannot be excluded air within the endometrium also is likely related to recent surgery however endometritis cannot be excluded. 3. No abscess or drainable fluid collection. 4. Possible constipation. No bowel obstruction. 5. Small left sided pleural effusion and associated atelectasis. 6. Mild hydronephrosis of both kidneys probably related. 1832:I discussed the patient's work up and Cellulitis with Dr. Friend. She states that most of the time we treat those with Keflex 500 mg 4 times a day and discharge her home. She can follow up in see Dr. Friend tomorrow in clinic or she can follow up with the Mid- Skylar Zuluaga in clinic. The patient was initially treated with Zosyn and vancomycin because I thought that she may be septic or have developed an abscess. As soon as the antibiotics are complete she will be discharged home and switch to arm Keflex 500 mg 4 times a day. I discussed the options and recommendations of Dr. Friend to the patient who will see the patient tomorrow in clinic. She wanted to go home and try this. Orders Ordered: Discontinued Medications Sodium Chloride (Normal Saline 0.9%) 1,000 mls @ 1,000 mls/hr IV BOLUS ONE Stop: 01/30/20 17:44 Last Infusion: 01/30/20 19:40 Dose: 0 mls/hr Documented by: Admin: 01/30/20 17:15 Dose: 1,000 mls/hr Documented by: COLT Piperacillin/Tazobactam/Dextrose (Zosyn) 4.5 gm in 100 mls @ 200 mls/hr IV NOW ONE Stop: 01/30/20 17:15 Last Infusion: 01/30/20 18:15 Dose: 0 mls/hr Documented by: Admin: 01/30/20 17:16 Dose: 200 mls/hr Documented by: COLT Vancomycin HCl (Vancomycin) 1,000 mg in 200 mls @ 200 mls/hr IV NOW ONE Stop: 01/30/20 17:44 Last Infusion: 01/30/20 19:40 Dose: 0 mls/hr Documented by: Admin: 01/30/20 17:16 Dose: 200 mls/hr Documented by: COLT Vital Signs Vital signs: Vital Signs - 8 hr 01/30/20 16:19 01/30/20 18:30 Temperature 97.8 F Pulse Rate 76 87 Respiratory Rate 15 16 Blood Pressure 125/86 Blood Pressure [Left Arm] 115/72 Pulse Oximetry 100 100 MDM - Recheck/Abnormal Lab/Rx Lab Data Result diagrams: 01/30/20 17:10 01/30/20 17:10 Labs: Lab Results 01/30/20 01/30/20 01/30/20 Range/Units 17:10 17:10 17:10 WBC 9.7 (4.5-11.0) X10^3/uL RBC 3.32 L (4.0-5.2) X10^6/uL Hgb 9.9 L (12.0-16.0) g/dL Hct 27.9 L (36-46) % MCV 84.3 (80-100) fL MCH 29.8 (26-34) PG MCHC 35.4 (30-36) % RDW 12.7 (11.6-14.8) % Plt Count 217 (150-400) X10^3/uL Neut % (Auto) 72.2 (50-75) % Lymph % (Auto) 19.6 L (25-40) % Henderson % (Auto) 5.0 (3-14) % Eos % (Auto) 2.6 (2-4) % Baso % (Auto) 0.6 (0-2) % Neut # (Auto) 7000 (2356-5447) /uL Lymph # (Auto) 1900 (8025-0630) /uL Henderson # (Auto) 500 (0-900) /uL Eos # (Auto) 200 (0-450) /uL Baso # (Auto) 100 (0-100) /uL Sodium 137 (137-145) mmol/L Potassium 3.8 (3.4-5.1) mmol/L Chloride 104 (98-107) mmol/L Carbon Dioxide 28 (22-32) mmol/L BUN 12 (7-17) mg/dL Creatinine 0.66 (0.52-1.04) mg/dL Estimated GFR > 60.0 (>60) mL/min BUN/Creatinine Ratio 18.2 (6-22) Glucose 77 (70-100) mg/dL Lactate 0.8 (0.7-2.1) mmol/L Calcium 8.9 (8.4-10.2) mg/dL Total Bilirubin 0.3 (0.2-1.3) mg/dL AST 50 H (14-36) IU/L ALT 34 (<35) IU/L Alkaline Phosphatase 128 H (38-126) U/L Total Protein 6.3 (6.3-8.2) g/dL Albumin 3.3 L (3.5-5.0) g/dL Globulin 3.0 (1.7-4.1) g/dL Albumin/Globulin Ratio 1.1 (1.0-2.8) Urine Dip Bedside Urine Glucose Negative Bedside Urine Bilirubin - Negative Bedside Urine Ketone - Negative Urine Specific [place] 1.015 Bedside Urine Occult Blood +++ Bedside Urine pH 6.0 Bedside Urine Protein +/- 15 Bedside Urine Urobilinogen - Negative Bedside Urine Nitrite - Negative Bedside Urine Leukocytes + 70 Esterase Discharge Plan Departure Patient Disposition: Home Clinical Impression: delivery delivered, Encounter for wound re-check, Abdominal wall cellulitis, Acute suprapubic pain Discharge Date/Time: 01/30/20 19:41 Instructions: DI for Cellulitis -- Adult Activity Restrictions/Additional Instructions: 1. Follow-up with Dr. friend to be reexamined and evaluated tomorrow in clinic. 2. Continue to take your medications for pain management as prescribed by Dr. friend on discharge. 3. Take the Keflex 500 mg 4 times a day until gone. 4. If you develop rapid heart rate, racing of your heart, increasing shortness of breath worsening abdominal pain feelings of fainting or passing-out you need to return to the emergency department. Prescriptions: New cephalexin [Keflex] 500 mg capsule 500 mg PO QID Qty: 28 RF: 0 No Action oxycodone 5 mg tablet 5 mg PO Q8H PRN (Reason: pain) Qty: 20 RF: 0 docusate sodium [Colace] 100 mg capsule 100 mg PO BID Qty: 60 RF: 0 oxycodone 5 mg tablet 5 mg PO Q8H PRN (Reason: pain) Qty: 20 RF: 0 Referrals: Alvin Neal PA-C [Primary Care Provider] -
[2020-01-30 18:30] VITALS: BP 115/72; PULSE 87; RESP 16; O2SAT 100
[2020-01-30 19:38] VITALS: BP 110/69; PULSE 79; RESP 18; TEMP 36.5; O2SAT 99
== END 2020-01-30 19:41 | disposition home or self-care (01) ==
PROVIDERS: Emergency Provider Emergency Medicine; PCP Physician Assistant
DX: Z51.89 Encounter for other specified aftercare (principal); L03.311 Cellulitis of abdominal wall; R10.2 Pelvic and perineal pain
CPT/HCPCS: 36415; 74177; 80053; 81003; 83605; 85025; 87040; 96365; 96366; 96367; 99284; 99285; J2543; Q9967

== ENCOUNTER → 2020-11-30 11:37 | Outpatient (CLI) | payer OTHER, SELFPAY ==
--- NOTE | 2020-11-30 | DI.MRI.S_ITS ---
PROCEDURE: MR WRIST LT WO/W CON INDICATIONS: Other specified joint disorder, left wrist TECHNIQUE: Noncontrast coronal proton density fast spin echo and T2 fast spin echo with fat saturation; coronal 3-D gradient echo, axial T1 spin echo and T2 fast spin echo with fat saturation, axial T1 spin echo with fat saturation, sagittal T1 spin echo through the wrist. Post-contrast axial, coronal, and sagittal T1 spin echo with fat saturation through the wrist. COMPARISON: None. FINDINGS: Image quality: Excellent. Bones and cartilage: No suspicious osseous enhancement. The carpal bones are normally aligned. No bone marrow contusions or fractures. No evidence for avascular necrosis. Overlying cartilage surfaces appear normal. Carpal ligaments: The scapholunate and lunotriquetral ligaments appear intact. In the absence of intra-articular contrast, the extrinsic carpal ligaments are not well identified. On sagittal images, the pisohamate ligament appears intact. Triangular fibrocartilage complex: The triangular fibrocartilage appears intact. The adjacent meniscal homolog appears normal in the absence of intra-articular contrast. The extensor carpi ulnaris tendon is normal in location and morphology. Tendons and soft tissues: No suspicious soft tissue enhancement. The carpal tunnel structures appear normal, including the median nerve. The ulnar nerve appears normal within Guyon's canal. All six extensor tendon compartments demonstrate normal morphology, without pathologic tendon sheath fluid. 7 x 6 x 7 mm cystic structure is noted over volar aspect of distal scaphoid and is lateral to the flexor carpi radialis tendon. No contrast enhancement is noted in this area. IMPRESSION: 1. Finding is suggestive of 7 x 6 x 7 mm ganglion cyst over volar aspect of distal scaphoid and lateral to the flexor carpi ulnaris tendon. No enhancing soft tissue mass or other ganglion cyst seen. 2. No marrow edema. No fracture or dislocation. No abnormal intraosseous enhancement. 3. Intrinsic and extrinsic wrist ligaments are intact. Wrist tendons are grossly intact. 4. Triangular fibrocartilage complex is within normal limits. Dictated by: Mason Webster M.D. on 11/30/2020 at 17:27 Approved by: Mason Webster M.D. on 11/30/2020 at 17:35
== END ==
PROVIDERS: PCP Family Medicine; Referring Provider Orthopaedic Surgery; Visit Provider Orthopaedic Surgery
DX: M25.832 Other specified joint disorders, left wrist (principal)
CPT/HCPCS: 73223; A9579